=== PATIENT | male | born 1980 | race African-American/Black ===

== ENCOUNTER 2022-06-08 04:31 | Emergency (ER) | payer OTHER ==
[~2022-06-08] VITALS: Ht 177.8 cm; Wt 73.0 kg
[2022-06-08] MEDS ORDERED: IPRATROPIUM BROMIDE (0.02%) 0.5MG/2.5ML NEB HHN STA (04:49)
[2022-06-08] MEDS ORDERED: ALBUTEROL (0.083%) 2.5MG/3ML NEB HHN STA (04:49)
[2022-06-08] MEDS ORDERED: METHYLPREDNISOLONE SOD SUCC 125 MG/2 ML VIAL IV STA (04:49)
[2022-06-08 05:54] LABS: BASOPHILS % 0.6 % (0.0-2.0); EOSINOPHILS % 1.6 % (0.0-5.0); HEMATOCRIT. 47.4 % (42.0-52.0); LYMPHOCYTES % 13.3 % (20.0-50.0); MEAN CORPUSCULAR HEMOGLOBIN 33.4 pg (28.0-32.0); MEAN PLATELET VOLUME 8.9 fl (7.4-10.4); NEUTROPHILS % 75.5 % (40.0-76.0); PLATELET 251 x1000/uL (130-400); RED BLOOD CELL COUNT 4.79 mill/uL (4.7-6.1); RED CELL DISTRIBUTION WIDTH 12.8 % (11.6-14.6)
[2022-06-08 06:06] LABS: CHLORIDE 105 mEq/L (98-107)
[2022-06-08] MEDS ORDERED: CEFTRIAXONE 1 G PREMIX 50 ML IV ONE (07:00)
[2022-06-08] MEDS ORDERED: AZITHROMYCIN 500MG/250ML 250 ML IV ONE (07:00)
[2022-06-08] MEDS ORDERED: ALBUTEROL (0.083%) 2.5MG/3ML NEB HHN ONE (11:00)
[2022-06-08 11:45] VITALS: BP 134/90
== END 2022-06-08 12:13 | disposition left against medical advice (07) ==
LOC: ER 04:54 → EDBEDREQTM 10:25 → EDBEDREQ 10:25 → ER 12:13 → CANBEDREQ 23:44
DX: J44.9 Chronic obstructive pulmonary disease, unspecified (principal); Z20.822 Contact with and (suspected) exposure to COVID-19
CPT/HCPCS: 36415; 71045; 80053; 83880; 84484; 85025; 87426; 93005; 94644; 96365; 96366; 96367; 96375; 99285; C9803; J0456; J0696; J2930; Z7610